=== PATIENT | male | born 1950 | race Hispanic/Latino ===

== ENCOUNTER 2021-03-17 09:37 | Observation (INO) | payer OTHER, MEDICARE ==
[~2021-03-17] VITALS: Ht 188 cm; Wt 94.8 kg
[2021-03-17] VITALS (7 sets, daily range): BP systolic 136–182; BP diastolic 75–106
[2021-03-17] MEDS ORDERED: ALPRAZOLAM 0.5 MG TABLET PO ONE (10:00)
[2021-03-17] MEDS ORDERED: ASPIRIN 325MG TAB PO ONE (10:00)
[2021-03-17] MEDS ORDERED: ALPRAZOLAM 0.25 MG TABLET ONE (10:02)
[2021-03-17] MEDS: ALPRAZOLAM 1 MG TAB PO SCH (10:10)
[2021-03-17 10:35] LABS: BASOPHILS % (AUTO) 0.7 % (0.0-5.0); EOSINOPHILS % (AUTO) 3.5 % (0.0-8.0); HEMATOCRIT 43.4 % (42-54); MEAN CORPUSCULAR HEMOGLOBIN 27.6 pg (27.0-33.0); MEAN CORPUSCULAR HGB CONC 31.6 g/dL (32.0-36.0); MEAN CORPUSCULAR VOLUME 87.3 fL (79-99); MONOCYTES % (AUTO) 10.7 % (3.0-13.0); NEUTROPHILS % (AUTO) 58.5 % (40.0-77.0); PLATELET COUNT (AUTO) 242 K/uL (130-400); RED BLOOD CELL COUNT(AUTO) 4.97 MIL/uL (4.50-6.20); RED CELL DISTRIBUTION WIDTH 14.3 % (11.0-15.5); WHITE BLOOD COUNT (AUTO) 9.9 K/uL (4.8-10.8)
[2021-03-17 10:50] LABS: PROTHROMBIN TIME 10.9 SEC (9.6-11.6)
[2021-03-17 10:51] LABS: PARTIAL THROMBOPLASTIN TIME 25.2 SEC (26.3-35.5)
[2021-03-17 10:53] LABS: CARBON DIOXIDE 27 mmol/L (21-32); CHLORIDE 102 mmol/L (101-111); GLOMERULAR FILTR. RATE CALC 79 mL/min (>60); GLUCOSE,RANDOM 188 mg/dL (70-105); POTASSIUM 3.7 mmol/L (3.5-5.1); SODIUM SERUM 138 mmol/L (136-145); UREA NITROGEN, BLOOD 11 mg/dL (7-18)
[2021-03-17 11:05] LABS: B-TYPE NATRIURETIC PEPTIDE 20 pg/mL (0-100)
[2021-03-17 11:10] LABS: ALANINE AMINOTRANSFERASE 20 U/L (12-78); ALBUMIN 3.7 g/dL (3.5-5.0); ASPARTATE AMINOTRANSFERASE 15 U/L (10-37); BILIRUBIN,TOTAL 0.5 mg/dL (0.2-1.0); CREATINE KINASE, TOTAL 125 U/L (21-232); MYOGLOBIN 38 ng/mL (10-92); TOTAL PROTEIN, SERUM 7.5 g/dL (6.0-8.3); TROPONIN I < 0.04 ng/mL (0.00-0.06)
[2021-03-17 12:18] LABS: APPEARANCE,URINE Clear (CLEAR); BILIRUBIN,URINE Negative (NEGATIVE); COLOR,URINE Yellow (YELLOW); GLUCOSE, URINE (UA) Negative (NEGATIVE); KETONES,URINE Negative (NEGATIVE); LEUKOCYTE ESTERASE ,URINE Negative (NEGATIVE); NITRATE,URINE Negative (NEGATIVE); OCCULT BLOOD,URINE Negative (NEGATIVE); PH,URINE 7.5 (5.0-8.0); PROTEIN,URINE Negative (NEGATIVE)
[2021-03-17] MEDS ORDERED: NITROGLYCERIN 0.4 MG SL TAB SL PRN (15:00)
[2021-03-17] MEDS ORDERED: DIPHENHYDRAMINE HCL 25 MG CAPSULE PO PRN (15:00)
[2021-03-17] MEDS ORDERED: ONDANSETRON 4MG INJ IV PRN (15:00)
[2021-03-17] MEDS ORDERED: LACTULOSE 20 GM/30 ML UDCUP PO PRN (15:00)
[2021-03-17] MEDS ORDERED: ACETAMINOPHEN 325 MG TAB PO PRN (15:00)
[2021-03-17] MEDS ORDERED: GUAIFENESIN-DM 200/20 MG 10 ML PO PRN (15:00)
[2021-03-17] MEDS ORDERED: ACETAMINOPHEN WITH CODEINE 1 TAB TAB PO PRN ×2 (15:00)
[2021-03-17] MEDS ORDERED: HYDRALAZINE 20MG/ML VIAL IV PRN (15:00)
[2021-03-17] MEDS ORDERED: MAG/ALUM/SIMETH 30 ML UDCUP PO PRN (15:00)
[2021-03-17] MEDS ORDERED: ZOLPIDEM TARTRATE 5 MG TAB PO PRN (15:00)
[2021-03-17 15:42] LABS: HEMOGLOBIN A1C 6.4 % (4.0-6.0)
[2021-03-17] MEDS ORDERED: ASPI-1005 PO (15:47)
[2021-03-17] MEDS ORDERED: DILT120T PO (15:47)
[2021-03-17] MEDS ORDERED: ATOR10 PO (15:47)
[2021-03-17] MEDS ORDERED: OMEP40CA21 PO (15:47)
[2021-03-17 15:49] LABS: CHOLESTEROL 191 mg/dL (<200); TRIGLYCERIDES 105 mg/dL (30-200)
[2021-03-17 15:50] LABS: HDL CHOLESTEROL 36 mg/dL (29-71); LDL DIRECT 142 mg/dL (0-99)
[2021-03-17] MEDS ORDERED: LISINOPRIL 10 MG TABLET PO SCH (16:30)
[2021-03-17] MEDS ORDERED: IOHEXOL-350 75 ML VIAL IV ONE (16:48)
[2021-03-17] MEDS ORDERED: FAMOTIDINE 20MG VIAL IV SCH (21:00)
[2021-03-17] MEDS ORDERED: ATORVASTATIN 10 MG TABLET PO SCH (21:00)
[2021-03-18 00:13] VITALS: BP 158/82
[2021-03-18 04:29] VITALS: BP 144/94
[2021-03-18 08:00] VITALS: BP 145/71
[2021-03-18] MEDS ORDERED: ASPIRIN 81MG CHEW TAB PO SCH (09:00)
[2021-03-18] MEDS ORDERED: ENOXAPARIN SODIUM 40 MG/0.4 ML SYRINGE SQ SCH (09:00)
[2021-03-18] MEDS ORDERED: LISINOPRIL 10 MG TABLET PO SCH (09:00)
[2021-03-18] MEDS ORDERED: PANTOPRAZOLE 40 MG TAB DR PO SCH (09:00)
[2021-03-18] MEDS ORDERED: DILTIAZEM 120MG SR CAP PO SCH (09:00)
[2021-03-18] MEDS ORDERED: LISI10TA24 PO (10:19)
[2021-03-18] MEDS: ALPRAZOLAM 1 MG TAB PO SCH (10:28)
[2021-03-18 12:00] VITALS: BP 114/68
== END 2021-03-18 13:07 | disposition home or self-care (01) ==
LOC: EDH 09:37 → EDHIP 14:54 → 4DH 22:08
PROVIDERS: ADMIT Internal Medicine; ATTEND Internal Medicine
DX: R07.89 Other chest pain (principal); I10 Essential (primary) hypertension; E11.65 Type 2 diabetes mellitus with hyperglycemia; F41.1 Generalized anxiety disorder; E78.00 Pure hypercholesterolemia, unspecified; K21.9 Gastro-esophageal reflux disease without esophagitis; N40.0 Benign prostatic hyperplasia without lower urinary tract symptoms; E78.5 Hyperlipidemia, unspecified; I48.91 Unspecified atrial fibrillation; R77.8 Other specified abnormalities of plasma proteins; Z79.82 Long term (current) use of aspirin; Z79.899 Other long term (current) drug therapy; Z98.890 Other specified postprocedural states
CPT/HCPCS: 36415; 71045; 71275; 80053; 80061; 81003; 82550; 82948 ×2; 83036; 83874; 83880; 84484 ×4; 85025; 85378; 85610; 85730; 93005 ×2; 93970; 96372; 99285; G0378 ×17; J1650; Q9967